=== PATIENT | male | born 1985 | race Two or more races ===

== ENCOUNTER 2018-10-11 08:19 | Inpatient (IN) | payer OTHER ==
[2018-10-11 08:45] VITALS: BMI 23.3
--- NOTE | 2018-10-11 09:18 | HP ---
COWS - Scale Resting Pulse: 1= [place] 81-100 Sweatin=Flushed/Facial Moisture Restless Observation: 5= Unable to Sit Still Pupil Size: 1= Pupils >than Normal Bone or Joint Aches: 4=Acute Joint/Muscle Pain Runny Nose/ Eye Tearin= Runny Nose/Eyes GI Upset > 30mins: 0= None Tremor Observation: 2= Slight Tremor Visible Yawning Observation: 1= 1-2x During Session Anxiety or Irritability: 4=Extreme Anxiety Goose Flesh Skin: 0=Smooth Skin COWS Score: 22 CIWA Score - Admission Criteria [facility] Guidelines: Admission for Medically Managed Detox: Requires at least one of the followin. CIWA greater than 12 2. Seizures within the past 24 hours 3. Delirium tremens within the past 24 hours 4. Hallucinations within the past 24 hours 5. Acute intervention needed for co occurring medical disorder 6. Acute intervention needed for co occurring psychiatric disorder 7. Severe withdrawal that cannot be handled at a lower level of care (continued vomiting, continued diarrhea, abnormal vital signs) requiring intravenous medication and/or fluids 8. Admission ROS [facility] - HPI Allergies/Adverse Reactions: Allergies Allergy/AdvReac Type Severity Reaction Status Date / Time No Known Allergies Allergy Verified 10/11/18 08:39 History of Present Illness: pt here requesting detox from heroin use , reports first age of use 27 , current daily use 1 bundle ivdu in neck , needles from the pharmacy , denies sharing , + re-using, denies abscess denies OD , latest use yesterday , current symptoms as above denies methadone use denies fentanyl use denies other illicits or etoh tobacco : occasional PMHX : denies pshx : denies psych : denies meds : denies shx : lives w/ parents , employed in restaurant , denies legal issues Exam Limitations: Clinical Condition - Ebola screening Have you traveled outside of the country in the last 21 days: No (N) Have you had contact with anyone from an Ebola affected area: No Do you have a fever: No - Review of Systems Constitutional: See HPI, Loss of Appetite EENT: reports: See HPI Respiratory: reports: No Symptoms reported Cardiac: reports: No Symptoms Reported GI: reports: See HPI : reports: No Symptoms Reported Musculoskeletal: reports: See HPI Integumentary: reports: See HPI Neuro: reports: No Symptoms reported Endocrine: reports: No Symptoms Reported Psychiatric: reports: Orientated x3, Agitated, Anxious Patient History - Smoking Cessation Smoking history: Current some day smoker Initiated information on smoking cessation: No - Substances abused Heroin Substance route: Injection Frequency: Daily Amount used: 20BAGS Age of first use: 27 Date of last use: 10/10/18 Family Disease History - Family Disease History Family Disease History: Diabetes: Father, Mother Admission Physical Exam S - Vital Signs Vital Signs: Vital Signs - 24 hr 10/11/18 08:40 Temperature 97.8 F Pulse Rate 96 H Respiratory 18 Rate Blood Pressure 122/89 - Physical General Appearance: Yes: Moderate Distress, Severe Distress, Irritable, Sweating , Anxious HEENTM: Yes: EOMI, Hearing grossly Normal, Normocephalic, Normal Voice, Nasal Congestion, Rhinorrhea Respiratory: Yes: Chest Non-Tender, Lungs Clear, Normal Breath Sounds Neck: Yes: No masses,lesions,Nodules, Trachea in good position Cardiology: Yes: Regular Rhythm, Regular Rate, S1, S2, Tachycardia Abdominal: Yes: Non Tender, Soft Genitourinary: Yes: Within Normal Limits Back: Yes: Normal Inspection Musculoskeletal: Yes: Back pain Extremities: Yes: Tremors Neurological: Yes: Fully Oriented, Alert, Motor Strength 5/5 Integumentary: Yes: Warm, Track Perez (neck , dashawn UE ante cubital) - Diagnostic (1) Opioid dependence Current Visit: Yes Status: Acute Qualifiers: Substance use status: in withdrawal Qualified Code(s): F11.23 - Opioid dependence with withdrawal Breathalyzer - Breathalyzer Breathalyzer: 0 Urine Drug Screen - Test Device Lot number: [id number] Expiration date: 06/21/20 - Control Is test valid?: Yes - Results Drug screen NEGATIVE: No Urine drug screen results: FEN-Fentanyl, MTD-Methadone Inpatient Rehab Admission - Rehab Decision to Admit Inpatient rehab admission?: No
[2018-10-11] MEDS ORDERED: MAGNESIUM HYDROX 2400MG/30ML ORAL SUSPENSION 30 ML CUP PO PRN (09:27)
[2018-10-11] MEDS ORDERED: MAGNESIUM CITRATE 300 ML BOTTLE PO PRN (09:27)
[2018-10-11] MEDS ORDERED: cloNIDine HCL 0.1 MG TABLET PO PRN (09:27)
[2018-10-11] MEDS ORDERED: ACETAMINOPHEN 325 MG TABLET (FP) PO PRN ×2 (09:27)
[2018-10-11] MEDS ORDERED: IBUPROFEN 400 MG TABLET (FP) PO PRN (09:27)
[2018-10-11] MEDS ORDERED: METHOCARBAMOL 500 MG TABLET PO PRN (09:27)
[2018-10-11] MEDS ORDERED: MENTHOL/PHENOL 1 EACH UD MM PRN (09:27)
[2018-10-11] MEDS ORDERED: NICOTINE POLACRILEX 2 MG GUM BUC PRN (09:27)
[2018-10-11] MEDS ORDERED: BISMUTH SUBSALICYLATE 262 MG/15 ML BTL PO PRN (09:27)
[2018-10-11] MEDS ORDERED: METHADONE HCL 10 MG TABLET (FOR DETOX USE ONLY) PO ONE (10:30)
[2018-10-11] MEDS: PRENATAL VITAMINS W/ FOLIC ACID TABLET (FP) PO SCH (10:56)
[2018-10-11] MEDS: THIAMINE HCL 100 MG TABLET (FP) PO SCH (22:23)
[2018-10-11] MEDS: MELATONIN 5 MG TABLETS PO PRN (22:23)
[2018-10-11] MEDS: hydrOXYzine PAMOATE 25 MG CAPSULE (FP) PO PRN (22:24)
[2018-10-12] MEDS: PRENATAL VITAMINS W/ FOLIC ACID TABLET (FP) PO SCH (10:00)
[2018-10-12] MEDS: hydrOXYzine PAMOATE 25 MG CAPSULE (FP) PO PRN ×2 (10:00→22:28)
[2018-10-12] MEDS ORDERED: METHADONE HCL 10 MG TABLET (FOR DETOX USE ONLY) PO ONE (10:00)
[2018-10-12 10:13] LABS: ALBUMIN 2.6 g/dl (3.4-5.0); BILIRUBIN,TOTAL 0.4 mg/dL (0.2-1); CALCIUM 8.5 mg/dL (8.5-10.1); POTASSIUM 3.9 mmol/L (3.5-5.1); TOT PROT 7.1 g/dl (6.4-8.2)
[2018-10-12 10:30] LABS: HEMATOCRIT 33.5 % (35.4-49); HEMOGLOBIN 9.8 GM/dL (11.7-16.9); MCHC 29.2 g/dl (32.0-35.9); MEAN CELL VOLUME 66.9 fl (80-96); RBC 5.01 M/mm3 (4.00-5.60); RDW 17.1 % (11.9-15.9); WHITE BLOOD COUNT 4.3 K/mm3 (4.0-10.0)
[2018-10-12 10:31] LABS: MCH 19.5 pg (25.7-33.7)
[2018-10-12] MEDS: diazePAM 5 MG TABLET PO PRN ×3 (10:49→19:34)
[2018-10-12] MEDS: MAG HYDROX/AL HYDROX/SIMETH 30 ML UNIT-DOSE CUP PO PRN (15:18)
--- NOTE | 2018-10-12 19:01 | PN ---
[facility] COWS - Scale Resting Pulse: 2= [place] 101-120 Sweatin= Chills/Flushing Restless Observation: 1= Difficult to Sit Still Pupil Size: 0= Normal to Room Light Bone or Joint Aches: 2= Severe Diffuse Aches Runny Nose/ Eye Tearin= None GI Upset > 30mins: 0= None Tremor Observation of Outstretched Hands: 2= Slight Tremor Visible Yawning Observation: 1= 1-2x During Session Anxiety or Irritability: 4=Extreme Anxiety Goose Flesh Skin: 3=Piloerection COWS Score: 16 [facility] Progress Note (SOAP) Subjective: Anxious, Sweating, Chills, Interrupted Sleep, Body Aches, Tremors. Objective: PATIENT A & O X 3, OBSERVED AMBULATING ON UNIT UNASSISTED. IN NO ACUTE DISTRESS. 10/12/18 18:59 Vital Signs Temperature 97.8 F 10/12/18 17:36 Pulse Rate 86 10/12/18 17:36 Respiratory Rate 16 10/12/18 17:36 Blood Pressure 111/78 10/12/18 17:36 O2 Sat by Pulse Oximetry (%) Laboratory Tests 10/12/18 10/12/18 07:40 07:40 WBC 4.3 RBC 5.01 Hgb 9.8 L Hct 33.5 L MCV 66.9 L MCH 19.5 L MCHC 29.2 L RDW 17.1 H Plt Count Sodium 140 Potassium 3.9 Chloride 107 Carbon Dioxide 27 Anion Gap 5 L BUN 16 Creatinine 1.0 Est GFR (CKD-EPI)AfAm 115.72 Est GFR (CKD-EPI)NonAf 99.85 Random Glucose 95 Calcium 8.5 Total Bilirubin 0.4 AST 31 ALT 36 Alkaline Phosphatase 101 Total Protein 7.1 Albumin 2.6 L LABS NOTED. Assessment: 10/12/18 18:59 WITHDRAWAL SYMPTOMS. ANEMIA (MICROCYTIC). Plan: CONTINUE DETOX. INCREASE DAILY PO FLUID / WATER INTAKE. PRN VALIUM PO FOR SEVERE ANXIETY. FEOSOL, 325 MG PO TIDCM FOR (MICROCYTIC) ANEMIA. PATIENT IS CURRENTLY RECEIVING DAILY MVI CONTAINING B VITAMINS AND IRON WHILE ADMITTED FOR DETOX. REPEAT CBC ON 10/14/2018 FOR MICROCYTIC ANEMIA NOTED ON ADMISSION CBC.
[2018-10-12] MEDS: FERROUS SO4 325 MG TABLET (FP) PO SCH (19:34)
[2018-10-12 21:51] VITALS: TEMP 96.8
[2018-10-12] MEDS: THIAMINE HCL 100 MG TABLET (FP) PO SCH (22:28)
[2018-10-12] MEDS: MELATONIN 5 MG TABLETS PO PRN (22:28)
[2018-10-13] MEDS: diazePAM 5 MG TABLET PO PRN (03:05)
[2018-10-13] MEDS: MAG HYDROX/AL HYDROX/SIMETH 30 ML UNIT-DOSE CUP PO PRN (03:05)
[2018-10-13 07:23] VITALS: BP 120/83; PULSE 57
[2018-10-13] MEDS: FERROUS SO4 325 MG TABLET (FP) PO SCH (09:23)
--- NOTE | 2018-10-13 09:32 | DS ---
[facility] Detox Discharge Summary Admission Date: 10/11/18 Discharge Date: 10/13/18 - History Present History: Opioid Dependence Pertinent Past History: Denies - Physical Exam Results Vital Signs: Vital Signs Temperature 96.8 F L 10/13/18 07:22 Pulse Rate 57 L 10/13/18 07:22 Respiratory Rate 18 10/13/18 07:22 Blood Pressure 120/83 10/13/18 07:22 O2 Sat by Pulse Oximetry (%) Pertinent Admission Physical Exam Findings: Withdrawal sx Laboratory Last Values WBC 4.3 K/mm3 (4.0-10.0) 10/12/18 07:40 RBC 5.01 M/mm3 (4.00-5.60) 10/12/18 07:40 Hgb 9.8 GM/dL (11.7-16.9) L 10/12/18 07:40 Hct 33.5 % (35.4-49) L 10/12/18 07:40 MCV 66.9 fl (80-96) L 10/12/18 07:40 MCH 19.5 pg (25.7-33.7) L 10/12/18 07:40 MCHC 29.2 g/dl (32.0-35.9) L 10/12/18 07:40 RDW 17.1 % (11.9-15.9) H 10/12/18 07:40 Plt Count K/MM3 (134-434) 10/12/18 07:40 Sodium 140 mmol/L (136-145) 10/12/18 07:40 Potassium 3.9 mmol/L (3.5-5.1) 10/12/18 07:40 Chloride 107 mmol/L (98-107) 10/12/18 07:40 Carbon Dioxide 27 mmol/L (21-32) 10/12/18 07:40 Anion Gap 5 MMOL/L (8-16) L 10/12/18 07:40 BUN 16 mg/dL (7-18) 10/12/18 07:40 Creatinine 1.0 mg/dL (0.55-1.3) 10/12/18 07:40 Est GFR (CKD-EPI)AfAm 115.72 10/12/18 07:40 Est GFR (CKD-EPI)NonAf 99.85 10/12/18 07:40 Random Glucose 95 mg/dL (74-106) 10/12/18 07:40 Calcium 8.5 mg/dL (8.5-10.1) 10/12/18 07:40 Total Bilirubin 0.4 mg/dL (0.2-1) 10/12/18 07:40 AST 31 U/L (15-37) 10/12/18 07:40 ALT 36 U/L (13-61) 10/12/18 07:40 Alkaline Phosphatase 101 U/L (45-117) 10/12/18 07:40 Total Protein 7.1 g/dl (6.4-8.2) 10/12/18 07:40 Albumin 2.6 g/dl (3.4-5.0) L 10/12/18 07:40 RPR Titer Nonreactive (NONREACTIVE) 10/12/18 07:40 HIV 1&2 Antibody Screen Negative 10/12/18 07:40 HIV P24 Antigen Negative 10/12/18 07:40 Labs noted - Medication Discharge Medications: Ambulatory Orders NK [No Known Home Medication] 10/11/18 - Diagnosis (1) Opioid dependence Status: Acute Qualifiers: Substance use status: in withdrawal Qualified Code(s): F11.23 - Opioid dependence with withdrawal - AMA Did Patient Leave Against Medical Advice: Yes
[2018-10-13] MEDS ORDERED: METHADONE HCL 10 MG TABLET (FOR DETOX USE ONLY) PO ONE (10:00)
[2018-10-14] MEDS ORDERED: METHADONE HCL 10 MG TABLET (FOR DETOX USE ONLY) PO ONE (10:00)
[2018-10-15] MEDS ORDERED: METHADONE HCL 5 MG TABLET (FOR DETOX USE ONLY) PO ONE (06:00)
== END 2018-10-13 09:25 | disposition left against medical advice (07) | DRG 770 ==
LOC: YASAS 08:19 → Y3N 09:57
PROVIDERS: ADMIT Surgery; ATTEND Surgery
PROC: HZ2ZZZZ Detoxification Services for Substance Abuse Treatment (ICD-10-PCS; principal; 2018-10-11)
DX: F11.23 Opioid dependence with withdrawal (principal); F17.210 Nicotine dependence, cigarettes, uncomplicated; D64.9 Anemia, unspecified
CPT/HCPCS: 36415; 80053; 85027; 86593; 87389